=== PATIENT | male | born 1975 | race Asian ===

== ENCOUNTER 2024-01-31 08:15 | Outpatient (AMB) | payer BC, SELFPAY ==
--- NOTE | 2024-01-31 08:19 | A.OFFVIS_ITS ---
Intake VS Expanded 01/31/24 08:27 BP 158/81 H Blood Pressure Location Rt brachial Blood Pressure Position Sitting Pulse 82 Pulse Source Pulse Oximeter Temp 96.8 F Temperature Source Temporal Artery Scan Pulse Oximetry 99 Oxygen Delivery Method Room Air Height 6 ft 2 in Weight 256 lb 12.8 oz BMI 33.0 Body Fat % 27.6 Body Fat Mass 70.8 Fat Free Mass 185.8 Visceral Fat Rating 14.0 Body Water % 51.9 Body Water Mass 51.9 Muscle Mass/Score 133.2 Basal Metabolic Rate/Score 2,526 Intake Visit Reasons: [employer] - Ref. by Dr. Palacios Allergies No Known Allergies [No Known Allergies*] Allergy (Verified 01/31/24 09:07) Medication List - Last Reconciled 01/31/24 by Tin Simms MD canagliflozin (Invokana) 300 mg PO DAILY insulin glargine (Lantus Solostar U-100 Insulin) units subcut insulin glargine U-300 conc (Toujeo SoloStar U-300 Insulin) units subcut losartan 50 mg PO DAILY metformin 500 mg PO BID pioglitazone (Actos) 15 mg PO DAILY rosuvastatin 10 mg PO BEDTIME HPI HPI Comments History of Present Illness Details Previous weight loss efforts: Self diets, Tried Mounjaro but developed nausea and discontinued it Wakes up: 6am, Sleeps: 11pm Breakfast: 9am (Apple, cereal, bagel) Lunch: 1pm (Subway tuna salad) Dinner: 8.30pm (chicken, rice, vegetables) Snacks: 2-3 times between breakfast and lunch (nuts, yogurt or orange) and between lunch and dinner, after dinner (cookies or nuts) Exercise: Has home elliptical and gym membership Fluids: Coffee (10-12 cups/day with milk), tea: 1/daily (milk), soda: (stopped last month, Sprite regular), juice: (stoppedlast month, had before), ETOH: none PFSH Medical History (Updated 01/31/24 @ 16:54 by Tin Simms MD) Back pain Hyperlipidemia Hypertension Insulin dependent type 2 diabetes mellitus Surgical History (Updated 01/31/24 @ 08:25 by Aicha Justice CMA) Hx of tonsillectomy Social History (Updated 01/31/24 @ 08:24 by Aicha Justice CMA) Alcohol intake: never Patient Tobacco Use Status: Never used Tobacco Physical Exam Vital Signs: Last Vital Signs Temp 96.8 F 01/31/24 08:27 Pulse 82 01/31/24 08:27 BP 158/81 H 01/31/24 08:27 Pulse Ox 99 01/31/24 08:27 Oxygen Delivery Method Room Air 01/31/24 08:27 BMI result Body Mass Index 33.0 GI Inspection: Yes normal to inspection (Mixed body habitus) and Yes obesity Palpation (GI): Soft to palpation Extrem Right lower extremity: normal to inspection Left lower extremity: normal to inspection Assessment & Plan Assessment & Plan (1) Obesity: Code(s): E66.9 - Obesity, unspecified Qualifiers: Obesity type: due to excess calories Obesity classification: adult class 1 (BMI 30 - 34.9) Serious obesity comorbidity presence: with serious comorbidity Body mass index: BMI 33.0-33.9 Qualified Code(s): E66.09 - Other obesity due to excess calories; Z68.33 - Body mass index [BMI] 33.0-33.9, adult Plan: 1. We discussed the two surgical options of laparoscopic gastric bypass and lap sleeve gastrectomy. If diaphragmatic or ventral hernias are present at time of surgery, these will be repaired laparoscopically as well. Risks and complications were discussed in detail including possible conversion to an open procedure, anastomotic leak, bleeding requiring transfusion, small bowel obstruction, , DVT and pulmonary embolism, cardiac, or pulmonary complications, as fdc complications such as anastomotic ulcer, insufficient weight loss and vitamin deficiencies. I emphasized the importance of close follow-up, adherence to instructions and good communication. We discussed the benefits of doing the surgery versus following only a lifestyle in tervention in terms of greater weight loss and easier to maintain the weight loss long-term. We also discussed technical issues of the two operaitons and I answered all questions the patient and his had. We also discussed whether he could observe the Ramadan and the strategy to do that while he follows our lifestyle intervention protocol. Coding Level of Care Code New Pt Level 5 (89128) Diagnoses Class 1 obesity due to excess calories with serious comorbidity and body mass index (BMI) of 33.0 to 33.9 in adult E66.09; Z68.33 Obesity type: due to excess calories Obesity classification: adult class 1 (BMI 30 - 34.9) Serious obesity comorbidity presence: with serious comorbidity Body mass index: BMI 33.0-33.9 Time Spent (min) 60
[2024-01-31 08:27] VITALS: BP 158/81; PULSE 82; TEMP 36; O2SAT 99; BMI 33.0
== END 2024-01-31 16:58 | disposition home or self-care (01) ==
PROVIDERS: PCP Family Medicine; Visit Provider Surgery
DX: E66.09 Other obesity due to excess calories (principal); Z68.33 Body mass index [BMI] 33.0-33.9, adult
CPT/HCPCS: 99205

== ENCOUNTER → 2024-01-31 08:15 | Outpatient (BNVA) | payer BC, SELFPAY | PROVIDERS: PCP Family Medicine; Visit Provider Surgery ==